=== PATIENT | male | born 1975 | race Caucasian/White ===

== ENCOUNTER 2018-09-19 07:16 | Emergency (ER) | payer BC ==
[2018-09-19] MEDS ORDERED: NORMAL SALINE 1000 ML 1,000 ML IV ONE ×2 (08:15→12:19)
[2018-09-19] MEDS ORDERED: KETOROLAC TROMETHAMINE INJ/PF 30 MG/1 ML SDV IV ONE (08:15)
[2018-09-19] MEDS ORDERED: ONDANSETRON HCL INJ/PF 4 MG/2 ML SDV IV ONE (08:15)
--- NOTE | 2018-09-19 08:15 | ER Document Report ---
ED General - General Chief Complaint: Flank Pain Stated Complaint: FLANK PAIN Time Seen by Provider: 09/19/18 08:03 Primary Care Provider: ERAN SANCHEZ MD [NO LOCAL MD] - Follow up as needed RYLAND BUCHANAN PA [Primary Care Provider] - Follow up as needed ADELFO KERR MD [NO LOCAL MD] - Follow up as needed Mode of Arrival: Ambulatory Information source: Patient TRAVEL OUTSIDE OF THE [place] IN LAST 30 DAYS: No - HPI Notes: 43-year-old male with a medical history of neurofibromatosis presents to the ED for evaluation of right flank pain x 2 weeks that has become increasingly worse. Duration of pain over the last 2 weeks has been approximately 45 minutes and then goes away. The pain the patient is experiencing today started at 3 AM and has been constant since then, pain is 10 out of 10, sharp stabbing. Patient do es not have a history of nephrolithiasis. 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 Patient reports that he is having urinary frequency, only small amounts when he does void. reports sudden onset right testicular pain that started at 0300 this morning along with right flank pain. Patient was seen by his primary care provider yesterday for right flank pain, an MRI of the lumbar spine was ordered, results have not been given to him yet. reports that he does drink approximately between 1-4 drinks a day of vodka. Denies fevers, chills, chest pain,palpitations, shortness of breath, dyspnea, nausea, vomiting, diarrhea, , hematuria,blurred vision, double vision, loss of vision, speech changes, LH, dizziness, syncope, headaches, wheezing, ST, URI, neck pain, weakness, bowel or bladder dysfunction, saddle anesthesia, numbness or tingling in bilateral upper or lower extremities equally, muscle paralysis, weakness in bilateral upper or lower extremities equally or rash. - Related Data Allergies/Adverse Reactions: bee sting Adverse Reaction (Uncoded 09/19/18 07:20) Past Medical History - General Information source: Patient, Office - Social History Smoking Status: Never Smoker Family History: Reviewed & Not Pertinent Psychiatric Medical History: Reports: Hx Bipolar Disorder Past Surgical History: Reports: Hx Orthopedic Surgery - back surgery, T8-T10, Physical Exam - Vital signs Vitals: Temp Pulse Resp BP Pulse Ox 97.5 F 88 18 155/97 H 97 09/19/18 07:33 09/19/18 07:33 09/19/18 07:33 09/19/18 07:33 09/19/18 07:33 Course - Re-evaluation Re-evalutation: Afebrile vitals stable and in somewhat distress due to pain, patient given morphine IVP. CBC negative for leukocytosis or anemia, CMP negative for renal dysfunction, slightly elevated ALT, patient did state that he does drink vodka daily 1-4 drinks. Testicular ultrasound negative for testicular torsion or masses, noted varicoceles. CT abdomen pelvis shows a 4 mm obstructive stone at the distal right ureter with associated hydronephrosis and perinephritic stranding, will start patient on oral antibiotics, Flomax, Zofran and pain medications CT also shows hepatic stenosis. Creatinine and BUN within normal range. Urinalysis does show some proteinuria and ketones. 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 Chon Tomlinson, supervising ER physician, who advised to consult with neurosurgeon ada accommodation consultant. Called [facility] at at 1230. awaiting for call back. 1420-TRISH Smith from 1428, from [place] [facility] in [facility], stated that they would gladly see patient outpatient that he does not need to be transferred down to [facility] today. We will send patient home with medications for his ureteral stone, advised to follow-up with urologist, Dr. Kerr, urologist given for referral. . after performing a Medical Screening Examination, I estimate there is LOW risk for ACUTE APPENDICITIS, BOWEL OBSTRUCTION, ACUTE CHOLECYSTITIS, PERFORATED DIVERTICULITIS, INCARCERATED HERNIA, PANCREATITIS, TESTICULAR TORSION or PERFORATED ULCER, thus I consider the discharge disposition reasonable. Also, there is no evidence or peritonitis, sepsis, or toxicity. I have reevaluated this patient multiple times and no significant life threatening changes are noted. The patient and I have discussed the diagnosis and risks, and we agree with discharging home with close follow-up with the understanding that symptoms and presentations can change. We also discussed returning to the Emergency Department immediately if new or worsening symptoms occur. We have discussed the symptoms which are most concerning (e.g., worsening pain, bowel or bladder dysfunction, weakness, vomiting, fever etc - standard verbal up date) that necessitate immediate return. - Vital Signs Vital signs: Temp Pulse Resp BP Pulse Ox 97.6 F 88 18 148/72 H 98 09/19/18 08:59 09/19/18 07:33 09/19/18 11:02 09/19/18 11:02 09/19/18 11:02 - Laboratory Result Diagrams: 09/19/18 08:48 09/19/18 08:48 Laboratory results interpreted by me: 09/19/18 09/19/18 08:48 10:00 AST 66 H Urine Protein 30 H Urine Ketones TRACE H Urine Blood LARGE H Urine Ascorbic Acid 40 H Discharge - Discharge Clinical Impression: Ureteral stone with hydronephrosis, Hepatic steatosis, Neurofibroma, Varicocele Condition: Stable Disposition: HOME, SELF-CARE Instructions: Kidney Stone ([facility]) Additional Instructions: Increase oral fluids, take anti-nausea medication as directed, take Flomax as directed. Do not drive, drink or operate heavy machinery while taking pain medication as it can cause sedation and impairment of cognitive function. F ollow-up with urologist as well as neurosurgeon within the next week, to follow- up with your primary care provider within the next 24 hours. If any symptoms become worse return to the emergency room immediately such as weakness, vomiting, worsening pain, bowel or bladder incontinence's, fever Return immediately for any new or worsening symptoms. Follow up with primary care provider, call tomorrow to make followup appointment. Prescriptions: Ciprofloxacin HCl [Cipro 500 mg Tablet] 500 mg PO BID #10 tablet Ondansetron [Zofran Odt 4 mg Tablet] 1 - 2 tab PO Q4H PRN #15 tab.rapdis PRN Reason: For Nausea/Vomiting Tamsulosin HCl [Flomax 0.4 mg Cap.sr] 0.4 mg PO DAILY #7 cap.sr.24h Forms: Return to Work Referrals: ADELFO KERR MD [NO LOCAL MD] - Follow up in 3-5 days ERAN SANCHEZ MD [NO LOCAL MD] - Follow up in 3-5 days RYLAND BUCHANAN PA [Primary Care Provider] - Follow up tomorrow
[2018-09-19] MEDS ORDERED: MORPHINE SULFATE 10 MG/ML INJ IV ONE ×2 (08:28→11:09)
[2018-09-19 09:05] LABS: ABSOLUTE BASOPHILS # (AUTO) 0.1 10^3/uL (0.0-0.2); ABSOLUTE EOSINOPHILS # (AUTO) 0.4 10^3/uL (0.0-0.6); ABSOLUTE LYMPHOCYTES (AUTO) 1.6 10^3/uL (0.5-4.7); ABSOLUTE MONOCYTES (AUTO) 0.9 10^3/uL (0.1-1.4); ABSOLUTE NEUT (AUTO) 6.3 10^3/uL (1.7-8.2); BASOPHILS % (AUTO) 0.8 % (0-2); EOSINOPHILS % (AUTO) 4.4 % (0-6); HEMATOCRIT 47.9 % (37.9-51.0); HEMOGLOBIN 16.3 g/dL (13.5-17.0); LYMPHOCYTES % (AUTO) 17.1 % (13-45); MEAN CORPUSCULAR HEMOGLOBIN 31.9 pg (27.0-33.4); MEAN CORPUSCULAR VOLUME 94 fl (80-97); MONOCYTES % (AUTO) 9.5 % (3-13); PLATELET COUNT 227 10^3/uL (150-450); RED CELL DISTRIBUTION WIDTH 13.9 % (11.5-14.0); SEGMENTED NEUTROPHILS % (AUTO) 68.2 % (42-78); TOTAL CELLS COUNTED % (AUTO) 100 %; WHITE BLOOD COUNT 9.2 10^3/uL (4.0-10.5)
[2018-09-19 09:21] LABS: ALBUMIN 4.4 g/dL (3.5-5.0); ALKALINE PHOSPHATASE 70 U/L (38-126); ANION GAP 8 (5-19); ASPARTATE AMINO TRANSFERASE 66 U/L (17-59); BILIRUBIN,DIRECT 0.2 mg/dL (0.0-0.4); BILIRUBIN,TOTAL 0.7 mg/dL (0.2-1.3); BLOOD UREA NITROGEN 19 mg/dL (7-20); CALCIUM 9.1 mg/dL (8.4-10.2); CARBON DIOXIDE 27 mmol/L (22-30); CHLORIDE 107 mmol/L (98-107); GLUCOSE 107 mg/dL (75-110); POTASSIUM 4.3 mmol/L (3.6-5.0); TOTAL PROTEIN 7.5 g/dL (6.3-8.2)
[2018-09-19 10:42] LABS: AMORPHOUS SEDIMENT,URINE 1+ /HPF; APPEARANCE,URINE TURBID; BILIRUBIN,URINE NEGATIVE (NEGATIVE); COLOR,URINE AMBER; GLUCOSE, URINE NEGATIVE (NEGATIVE); KETONES,URINE TRACE mg/dL (NEGATIVE); LEUKOCYTE ESTERASE,URINE NEGATIVE (NEGATIVE); NITRITE,URINE NEGATIVE (NEGATIVE); PROTEIN,URINE 30 mg/dL (NEGATIVE); URINE SPECIFIC GRAVITY 1.034; UROBILINOGEN,URINE NEGATIVE mg/dL (<2.0)
--- NOTE | 2018-09-19 11:14 | RADIOLOGY REPORT (SQ) ---
EXAM DESCRIPTION: U/S SCROTUM W/DOPPLER COMPLETED DATE/TIME: 09/19/2018 10:36 am REASON FOR STUDY: R testicular pain, sudden onset COMPARISON: None. TECHNIQUE: Static and realtime scale imaging of the scrotum and testes. Selected color Doppler and spectral images recorded to document blood flow. LIMITATIONS: None. FINDINGS: RIGHT: TESTICLE: Normal size measuring 4.2 x 3.3 x 2.2 cm. Normal echotexture. Normal blood flow. No mass. EPIDIDYMIS: Normal. HYDROCELE OR VARICOCELE: No hydrocele. Likely mild varicocele. HERNIA OR EXTRA-TESTICULAR MASS: No. OTHER: No other significant finding. LEFT: TESTICLE: Normal size measuring 5.0 x 3.2 x 2.2 cm. Normal echotexture. Normal blood flow. No mass. EPIDIDYMIS: Normal. HYDROCELE OR VARICOCELE: No hydrocele. Mild Varicocele. HERNIA OR EXTRA-TESTICULAR MASS: No. OTHER: No other significant finding. IMPRESSION: Unremarkable testicular parenchyma bilaterally. No evidence of torsion. Small varicoceles, left greater than right. TECHNICAL DOCUMENTATION: JOB ID: [id number]- All Rights Reserved Reading location - IP/workstation name: [email or web address]
--- NOTE | 2018-09-19 11:40 | RADIOLOGY REPORT (SQ) ---
EXAM DESCRIPTION: CT ABD/PELVIS WITH IV ONLY COMPLETED DATE/TIME: 09/19/2018 11:19 am REASON FOR STUDY: RUQ/RLQ/R testicular pain COMPARISON: None. TECHNIQUE: CT scan of the abdomen and pelvis performed using helical scanning technique with dynamic intravenous contrast injection. No oral contrast. Images reviewed with lung, soft tissue, and bone windows. Reconstructed coronal and sagittal MPR images reviewed. Delayed images for evaluation of the urinary system also acquired. All images stored on PACS. All CT scanners at this facility use dose modulation, iterative reconstruction, and/or weight based d osing when appropriate to reduce radiation dose to as low as reasonably achievable (ALARA). [facility]: Dose Right [facility]: CareDose [facility]: Dose Right [facility]: Teradose 4D [facility]: Qloud CONTRAST TYPE AND DOSE: contrast/concentration: Isovue 350.00 mg/ml; Total Contrast Delivered: 100.0 ml; Total Saline Delivered: 70.0 ml RENAL FUNCTION: Creatinine 0.86 RADIATION DOSE: CT Rad equipment meets quality standard of care and radiation dose reduction techniq ues were employed. CTDIvol: 18.6 - 20.6 mGy. DLP: 3590 mGy-cm.. LIMITATIONS: None. FINDINGS: LOWER CHEST: Minimal bilateral basilar hypoventilatory change. LIVER: Hepatic steatosis. No focal lesions. SPLEEN: Normal size. No focal lesions. PANCREAS: No masses. No significant calcifications. No adjacent inflammation or peripancreatic fluid collections. Pancreatic duct not dilated. GALLBLADDER: No identified stones by CT criteria. No inflammatory changes to suggest cholecystitis. ADRENAL GLANDS: No significant masses or asymmetry. RIGHT KIDNEY AND URETER: No solid masses. No significant calcifications. There is right hydrouret eronephrosis to the level of the distal ureter where there is a 4 mm obstructing stone. There is ass ociated perinephric stranding. LEFT KIDNEY AND URETER: No solid masses. No significant calcifications. No hydronephrosis or hydr oureter. AORTA AND VESSELS: No aneurysm. No dissection. Renal arteries, SMA, celiac without stenosis. RETROPERITONEUM: No retroperitoneal adenopathy, hemorrhage or masses. BOWEL AND PERITONEAL CAVITY: No masses or inflammatory changes. No free fluid or peritoneal masses. Multiple small shotty pericecal nodes without lymphadenopathy. APPENDIX: Normal. PELVIS: No mass. No free fluid. Normal bladder. ABDOMINAL WALL: No masses. No hernias. BONES: No acute bony abnormality. No suspicious osseous lesions. OTHER: No other significant finding. IMPRESSION: 1. Obstructing 4 mm stone at the distal right ureter with associated hydronephrosis and perinephric stranding. 2. Hepatic steatosis. TECHNICAL DOCUMENTATION: JOB ID: [id number] Quality ID # [id number]: Final reports with documentation of one or more dose reduction techniques (e.g., Au tomated exposure control, adjustment of the mA and/or kV according to patient size, use of iterative reconstruction technique) 2010 [employer]- All Rights Reserved Reading location - IP/workstation name: [email or web address]-
[2018-09-19] MEDS ORDERED: FENTANYL CITRATE INJ/PF 100 MCG/2 ML AMPUL IV ONE ×2 (12:40→14:17)
[2018-09-19] MEDS ORDERED: HYDROCODONE/ACETAMINOPHEN 5-325 MG (6 TAB/ER DISP) PO PRN (14:20)
[2018-09-19 15:30] VITALS: BP 148/74
== END 2018-09-19 15:45 | disposition home or self-care (01) ==
LOC: ER 07:16
DX: N13.2 Hydronephrosis with renal and ureteral calculous obstruction (principal); K76.0 Fatty (change of) liver, not elsewhere classified; I86.1 Scrotal varices; Q85.00 Neurofibromatosis, unspecified; R35.0 Frequency of micturition; R10.9 Unspecified abdominal pain; N50.811 Right testicular pain; R74.0 Nonspecific elevation of levels of transaminase and lactic acid dehydrogenase [LDH]; R80.9 Proteinuria, unspecified
CPT/HCPCS: 96376; 99284; 96374; 36415; 83690; 85025; 86140; 80053; 81001; 76870; 93976; 74177; J3010; J1885; J2270; J2405; J7030